=== PATIENT | female | born 1955 | race Caucasian/White ===

== ENCOUNTER 2016-10-12 18:11 | Observation (INO) | payer MEDICAID, OTHER ==
[2016-10-12] MEDS ORDERED: Lidocaine 2% Inj (20ml) INFIL ONE (18:51)
--- NOTE | 2016-10-12 18:55 | C.PDOC ---
History Of Present Illness 61 yr old female with PMHx of diabetes, presents to the ER for evaluation of a swelling to the right thumb. Patient reports a unknown sharp object struck her several days ago and since then the area has gotten swollen. Patient also reports of a mole to the right arm for the past several days. States when she scratches the area, it bleeds. Patient denies fever, chills, chest pain, SOB, nausea, vomiting, weakness or numbness. Time Seen by Provider: 10/12/16 18:34 Chief Complaint (Nursing): Abnormal Skin Integrity History Per: Patient History/Exam Limitations: no limitations Onset/Duration Of Symptoms: Days Past Medical History Reviewed: Historical Data, Nursing Documentation, Vital Signs Vital Signs: Last Vital Signs Temp 98.5 F 10/12/16 18:17 Pulse 73 10/12/16 18:17 Resp 18 10/12/16 18:17 BP 124/76 10/12/16 18:17 Pulse Ox 98 10/12/16 18:57 Family History: States: No Known Family Hx - Social History Hx Alcohol Use: No Hx Substance Use: No - Immunization History Hx Tetanus Toxoid Vaccination: No Hx Influenza Vaccination: No Hx Pneumococcal Vaccination: No Review Of Systems Except As Marked, All Systems Reviewed And Found Negative. Constitutional: Negative for: Fever, Chills Cardiovascular: Negative for: Chest Pain Respiratory: Negative for: Shortness of Breath Gastrointestinal: Negative for: Nausea, Vomiting Musculoskeletal: Positive for: Other ((+) Right thumb swelling.) Skin: Positive for: Other ((+) Mole to the right arm.) Neurological: Negative for: Weakness, Numbness Physical Exam - Physical Exam Appears: Non-toxic, No Acute Distress Skin: Warm, Dry, No Rash, Other (Right Arm - White color mole, approximately 1cm with irregular borders.) Head: Atraumatic, Normacephalic Oral Mucosa: Moist Chest: Symmetrical, No Tenderness Cardiovascular: Rhythm Regular, No Murmur Respiratory: Normal Breath Sounds, No Rales, No Rhonchi, No Stridor, No Wheezing Extremity: Normal ROM, Capillary Refill (<2), Other (Right Thumb - Swelling, fluctuance and tenderness to the medial nail margin with felon. ) Neurological/Psych: Oriented x3, Normal Speech, Normal Motor ED Course And Treatment - Laboratory Results Result Diagrams: 10/12/16 20:26 O2 Sat by Pulse Oximetry: 98 (RA) Pulse Ox Interpretation: Normal - Incision & Drainage Of Abscess Anesthesia: Lidocaine 2% Procedure: Incised W/Scalpel Blade#: (11), Drained Pus, Cultures Obtained And Sent To Lab Medical Decision Making Medical Decision Making: PLAN: * Tetanus IM given. * The case was discussed with Dr. Loco who agrees to consult on the patient states to admit medically for finger felon and cellulitis. * I&D per performed by me with small amount of pus drained and wound culture collected. * The case was discussed with Dr. Whittington (hospitalist oncall) who agrees to admit the patient medically. * Zosyn IV ordered. Disposition - Disposition Disposition: HOSPITALIZED Disposition Time: 20:15 Condition: FAIR - POA Present On Arrival: None - Clinical Impression Clinical Impression: Felon of finger, Cellulitis - PA / WORK ORDER CLERK / Resident Statement MD/DO has reviewed & agrees with the documentation as recorded. - Scribe Statement The provider has reviewed the documentation as recorded by the Scribe Kayla Lyle All medical record entries made by the Scribe were at my direction and personally dictated by me. I have reviewed the chart and agree that the record accurately reflects my personal performance of the history, physical exam, medical decision making, and the department course for this patient. I have also personally directed, reviewed, and agree with the discharge instructions and disposition.
[2016-10-12] MEDS ORDERED: Lidocaine 2% Inj (20ml) ONE (18:58)
[2016-10-12] MEDS ORDERED: Tetanus/Diphtheria Toxoids 0.5 ml Syringe IM ONE (19:40)
[2016-10-12] MEDS ORDERED: Piperacillin/Tazobact 3.375 gm 100 ML IV STA (20:23)
[2016-10-12] MEDS ORDERED: Piperacillin/Tazobact 3.375 gm 100 ML IVPB ONE ×2 (20:37→21:41)
[2016-10-12 21:01] LABS: CHLORIDE 100 mmol/L (98-107); POTASSIUM 4.7 mmol/L (3.6-5.2); SODIUM 137 mmol/L (132-148)
[2016-10-12 21:03] LABS: ALB/GLOB RATIO 1.2 (1.0-2.1); AST/SGOT 30 U/L (14-36); BILIRUBIN,TOTAL 0.8 mg/dL (0.2-1.3); BLOOD UREA NITROGEN 13 mg/dL (7-17); CARBON DIOXIDE 29 mmol/L (22-30); GFR AFRICAN-AMERICAN > 60; TOTAL PROTEIN 7.9 g/dL (6.3-8.3)
[2016-10-12 21:04] LABS: ALKALINE PHOSPHATASE 72 U/L (38-126); ALT/SGPT 30 U/L (9-52); CALCIUM 9.5 mg/dl (8.6-10.4); GLUCOSE,RANDOM 302 mg/dL (65-105)
--- NOTE | 2016-10-12 21:23 | CP.PCM.HP ---
<YungDonna Greta - Last Filed: 10/12/16 21:24> History of Present Illness - History of Present Illness History of Present Illness: CC: Finger hurts and is swollen HPI: Patient is a 61 y/o F with pmhx of uncontrolled diabetes who was looking for something in a drawer 4 days ago when the left side of her thumb was punctured by a earring. The thumb became more swollen and the pain increased to 10/10 which is why she came to the Emergency Room. She denies any fevers or chills. Patient also complains of symptoms caused by her sugars being high: blurry vision, dizziness, nausea/ vomiting (almost everyday), and diarrhea. She has lost about 30 lbs in the past year. She does not follow up with a primary care doctor because she has no insurance. She has been using Humalog 10 units once a day for about 6 months. If her sugars are in the 400s then she will take 10 more units. She checked her blood sugar a few times a day after meals and says it is always high. She did not know to check her sugars before meals. In the ED her finger was drained and the pus was sent for cultures. PMD: none, went to [facility] once in the past PMhx: DM II (diagnosed at 30) Psurg: none Famhx: Niece: ovarian cancer, nephew heart attack at 40, brother heart attack at 50 Social: smokes 1/2 pack of cigarettes per day since age 13 (24 pack years), denies alcohol, denies drugs Home Medications: Humalog 10u in the morning Present on Admission - Present on Admission Any Indicators Present on Admission: No History of DVT/PE: No History of Uncontrolled Diabetes: No Urinary Catheter: No Decubitus Ulcer Present: No Review of Systems - Constitutional Constitutional: Weight Loss. absent: Chills, Fever - EENT Eyes: Blurred Vision Ears: absent: Decreased Hearing Nose/Mouth/Throat: absent: Nasal Congestion, Sore Throat - Cardiovascular Cardiovascular: absent: Chest Pain, Claudication, Edema - Respiratory Respiratory: absent: Cough, Wheezing - Gastrointestinal Gastrointestinal: Diarrhea, Nausea, Vomiting - Genitourinary Genitourinary: absent: Change in Urinary Stream, Urinary Incontinence - Musculoskeletal Musculoskeletal: Tingling. absent: Joint Swelling, Muscle Weakness Additional comments: tingling in feet b/l - Neurological Neurological: Dizziness, Headaches. absent: Confusion - Psychiatric Psychiatric: absent: Confusion - Hematologic/Lymphatic Hematologic: absent: Easy Bleeding, Easy Bruising Past Patient History - Past Social History Smoking Status: Current Some Days Smoker - ENDOCRINE/METABOLIC Hx Diabetes Mellitus Type 2: Yes - PSYCHIATRIC Hx Substance Use: No Meds Allergies/Adverse Reactions: Allergies Allergy/AdvReac Type Severity Reaction Status Date / Time No Known Allergies Allergy Verified 10/12/16 18:27 Physical Exam - Constitutional Appears: Non-toxic, No Acute Distress - Head Exam Head Exam: ATRAUMATIC, NORMAL INSPECTION, NORMOCEPHALIC - Eye Exam Eye Exam: EOMI, PERRL Additional comments: pterygium in eyes b/l - ENT Exam ENT Exam: Mucous Membranes Moist - Neck Exam Neck exam: Positive for: Full Rom - Respiratory Exam Respiratory Exam: Clear to Auscultation Bilateral, NORMAL BREATHING PATTERN. absent: Rales, Rhonchi, Wheezes, Respiratory Distress, Stridor - Cardiovascular Exam Cardiovascular Exam: REGULAR RHYTHM, RRR. absent: Gallop, Rubs, Systolic Murmur - GI/Abdominal Exam GI & Abdominal Exam: Normal Bowel Sounds, Soft. absent: Tenderness - Extremities Exam Extremities exam: Positive for: normal inspection. Negative for: joint swelling , pedal edema - Neurological Exam Neurological exam: Alert, Oriented x3 - Psychiatric Exam Psychiatric exam: Normal Affect, Normal Mood - Skin Additional comments: right finger on left side and palmar aspect is edematous and erythematous Results - Vital Signs Recent Vital Signs: Last Vital Signs Temp 98.5 F 10/12/16 18:17 Pulse 73 10/12/16 18:17 Resp 18 10/12/16 18:17 BP 124/76 10/12/16 18:17 Pulse Ox 98 10/12/16 21:13 - Labs Result Diagrams: 10/12/16 20:26 Labs: Laboratory Results - last 24 hr 10/12/16 20:26 Sodium 137 Potassium 4.7 Chloride 100 Carbon Dioxide 29 Anion Gap 13 BUN 13 Creatinine 0.6 L Est GFR ( Amer) > 60 Est GFR (Non-Af Amer) > 60 Random Glucose 302 H Calcium 9.5 Total Bilirubin 0.8 AST 30 ALT 30 Alkaline Phosphatase 72 Total Protein 7.9 Albumin 4.3 Globulin 3.7 Albumin/Globulin Ratio 1.2 Assessment & Plan - Assessment and Plan (Free Text) Assessment: 1. Right Thumb Cellulitis Clindamycin 300 mg q6h Hand surgeon, Dr. Loco, consulted- help appreciated 2. Uncontrolled Diabetes Glucotrol XL 2.5mg daily Januvia 100 mg daily ISS accuchecks HgA1C 3. Prophylactic measures SCDs Pepcid 20 mg daily <Asad Whittington P - Last Filed: 10/20/16 19:34> Results - Vital Signs Recent Vital Signs: Last Vital Signs Temp 98 F 10/14/16 08:00 Pulse 56 L 10/14/16 08:00 Resp 20 10/14/16 08:00 BP 126/78 10/14/16 08:00 Pulse Ox 95 10/14/16 08:00 - Labs Result Diagrams: 10/14/16 09:13 10/14/16 09:13 Attending/Attestation - Attestation I have personally seen and examined this patient.: Yes I have fully participated in the care of the patient.: Yes I have reviewed all pertinent clinical information: Yes
[2016-10-12 21:47] LABS: BASO % 0.5 % (0.0-2.0); EOS # 0.3 K/uL (0.0-0.7); EOS % 3.2 % (0.0-4.0); HEMATOCRIT 42.7 % (34.0-47.0); LYMPH # 2.5 K/uL (1.0-4.3); LYMPH % 31.4 % (20.0-40.0); MEAN CELL VOLUME 78.5 fL (81.0-99.0); MEAN CORPUSCULAR HEMOGLOBIN 25.6 pg (27.0-31.0); MEAN CORPUSCULAR HGB CONC 32.6 g/dL (33.0-37.0); MEAN PLATELET VOLUME 8.3 fL (7.2-11.7); MONO # 0.4 K/uL (0.0-0.8); MONO % 4.4 % (0.0-10.0); RED CELL DISTRIBUTION WIDTH 13.4 % (11.5-14.5)
[2016-10-12] MEDS: Clindamycin 300 MG in Sodium Chloride 0.9% 50 ML IVPB SCH (22:32)
[2016-10-12] MEDS: (Novolin R) Insulin Human Regular 100 units/ml vial SC SCH (22:33)
[2016-10-13] MEDS: Clindamycin 300 MG in Sodium Chloride 0.9% 50 ML IVPB SCH ×4 (05:00→22:24)
[2016-10-13] MEDS: (Novolin R) Insulin Human Regular 100 units/ml vial SC SCH ×4 (07:30→22:07)
[2016-10-13 08:49] VITALS: RESP 20
[2016-10-13] MEDS: Enoxaparin 40 mg Syringe SC SCH ×2 (09:50→09:51)
[2016-10-13] MEDS ORDERED: GlipiZIDE 2.5 mg SR Tab PO SCH (10:00)
[2016-10-13] MEDS ORDERED: Bacitracin 500 Units/gm Oint Foilpak UD TOP ONE (12:36)
--- NOTE | 2016-10-13 16:29 | CP.PCM.PCO ---
Physician Communication Note - Physician Communication Note Physician Communication Note: Patient with paronychia status post I&D, improving , full note to follow
--- NOTE | 2016-10-13 17:04 | CP.PCM.PN ---
<Temi Jimenez DO - Last Filed: 10/13/16 16:59> Subjective - Date & Time of Evaluation Date of Evaluation: 10/13/16 Time of Evaluation: 10:20 - Subjective Subjective: Medicine progress note for Dr. Johnson Patient seen and examined. Patient states her thumb feels better after I&D but is framing machine tender to touch. Patient denies fevers and chills. Objective - Vital Signs/Intake and Output Vital Signs (last 24 hours): Temp Pulse Resp BP Pulse Ox 97.5 F L 60 20 107/69 95 10/13/16 08:00 10/13/16 08:00 10/13/16 08:00 10/13/16 08:00 10/13/16 08:00 Intake and Output: 10/13/16 10/13/16 06:59 18:59 Intake Total 350 530 Balance 350 530 - Medications Medications: Current Medications Enoxaparin Sodium (Lovenox) 40 mg SC DAILY [facility] Last Admin: 10/13/16 09:51 Dose: Not Given Famotidine (Pepcid) 20 mg PO DAILY [facility] Last Admin: 10/13/16 09:50 Dose: 20 mg Clindamycin Phosphate 300 mg/ (Sodium Chloride) 52 mls @ 100 mls/hr IVPB Q6H [facility] Last Admin: 10/13/16 09:49 Dose: 100 mls/hr Insulin Human Isoph/Insulin Regular (Novolin 70/30 (70/30 Units/Ml) 10 Ml) 15 units SC BID [facility] Insulin Human Regular (Novolin R) 0 unit SC ACHS [facility] PRN Reason: Protocol Last Admin: 10/13/16 12:12 Dose: 3 unit Pneumococcal Polyvalent Vaccine (Pneumovax 23 Vaccine) 0.5 ml IM .ONCE ONE Stop: 10/14/16 10:01 - Labs Labs: 10/12/16 21:39 10/12/16 20:26 - Constitutional Appears: Non-toxic, No Acute Distress - Head Exam Head Exam: ATRAUMATIC, NORMOCEPHALIC - Eye Exam Eye Exam: EOMI - ENT Exam ENT Exam: Mucous Membranes Moist - Respiratory Exam Respiratory Exam: Clear to Ausculation Bilateral, NORMAL BREATHING PATTERN - Cardiovascular Exam Cardiovascular Exam: +S1, +S2 - GI/Abdominal Exam GI & Abdominal Exam: Soft, Normal Bowel Sounds. absent: Tenderness - Extremities Exam Additional comments: right thumb with area of erythema and swelling adjacent to nail, tenderness on palpation without streaking up arm - Neurological Exam Neurological Exam: Alert, Awake - Psychiatric Exam Psychiatric exam: Normal Affect, Normal Mood - Skin Skin Exam: Dry, Warm Assessment and Plan - Assessment and Plan (Free Text) Assessment: 1. Right Thumb Cellulitis patient afebrile Clindamycin 300mg IV q6h Hand surgeon, Dr. Loco, consulted- help appreciated patient to do betadyne soaks TID patient can be D/C tomorrow if thumb improving with follow up if needed 2. Uncontrolled Diabetes novolin 70/30 15 units SC BID ISS accuchecks ACHS HgA1C pending 3. Prophylactic measures SCDs Pepcid 20 mg daily lovenox 40 sc daily <Santosh Johnson - Last Filed: 10/13/16 17:21> Objective - Vital Signs/Intake and Output Vital Signs (last 24 hours): Temp Pulse Resp BP Pulse Ox 97.5 F L 60 20 107/69 95 10/13/16 08:00 10/13/16 08:00 10/13/16 08:00 10/13/16 08:00 10/13/16 08:00 Intake and Output: 10/13/16 10/13/16 06:59 18:59 Intake Total 350 530 Balance 350 530 - Medications Medications: Current Medications Enoxaparin Sodium (Lovenox) 40 mg SC DAILY [facility] Last Admin: 10/13/16 09:51 Dose: Not Given Famotidine (Pepcid) 20 mg PO DAILY [facility] Last Admin: 10/13/16 09:50 Dose: 20 mg Clindamycin Phosphate 300 mg/ (Sodium Chloride) 52 mls @ 100 mls/hr IVPB Q6H [facility] Last Admin: 10/13/16 17:06 Dose: 100 mls/hr Insulin Human Isoph/Insulin Regular (Novolin 70/30 (70/30 Units/Ml) 10 Ml) 15 units SC BID [facility] Last Admin: 10/13/16 17:05 Dose: 15 units Insulin Human Regular (Novolin R) 0 unit SC ACHS [facility] PRN Reason: Protocol Last Admin: 10/13/16 17:05 Dose: 4 unit Pneumococcal Polyvalent Vaccine (Pneumovax 23 Vaccine) 0.5 ml IM .ONCE ONE Stop: 10/14/16 10:01 - Labs Labs: 10/12/16 21:39 10/12/16 20:26 Attending/Attestation - Attestation I have personally seen and examined this patient.: Yes I have fully participated in the care of the patient.: Yes I have reviewed all pertinent clinical information, including history, physical exam and plan: Yes Notes (Text): 10/13/16 17:20 Patient was seen and examined at bedside Continue IV antibiotics Start insulin for optimal sugar control Titrate as needed Follow-up recommendations of the hand surgery As The plan of care with the resident agree with the assessment and plan documented.
[2016-10-13] MEDS: (Novolin 70/30) NPH/Regular 70/30 Units/ml 10 ml vial SC SCH (17:05)
[2016-10-14] MEDS: Clindamycin 300 MG in Sodium Chloride 0.9% 50 ML IVPB SCH ×2 (04:05→10:14)
--- NOTE | 2016-10-14 07:46 | CP.PCM.PN ---
Subjective - Date & Time of Evaluation Date of Evaluation: 10/14/16 Time of Evaluation: 07:43 - Subjective Subjective: Plastics/Hand Surgery: Dr Loco Pt S&E. NAEO. Reports right thumb feels significantly better. Has been performing Iodine soaks TID. Denies f/c. Objective - Vital Signs/Intake and Output Vital Signs (last 24 hours): Temp Pulse Resp BP Pulse Ox 97.9 F 58 L 20 110/65 96 10/14/16 00:00 10/14/16 00:00 10/14/16 00:00 10/14/16 00:00 10/14/16 00:00 Intake and Output: 10/14/16 10/14/16 06:59 18:59 Intake Total 500 Balance 500 - Medications Medications: Current Medications Enoxaparin Sodium (Lovenox) 40 mg SC DAILY [facility] Last Admin: 10/13/16 09:51 Dose: Not Given Famotidine (Pepcid) 20 mg PO DAILY [facility] Last Admin: 10/13/16 09:50 Dose: 20 mg Clindamycin Phosphate 300 mg/ (Sodium Chloride) 52 mls @ 100 mls/hr IVPB Q6H [facility] Last Admin: 10/14/16 04:05 Dose: 100 mls/hr Insulin Human Isoph/Insulin Regular (Novolin 70/30 (70/30 Units/Ml) 10 Ml) 15 units SC BID [facility] Last Admin: 10/13/16 17:05 Dose: 15 units Insulin Human Regular (Novolin R) 0 unit SC ACHS [facility] PRN Reason: Protocol Last Admin: 10/13/16 22:07 Dose: Not Given Pneumococcal Polyvalent Vaccine (Pneumovax 23 Vaccine) 0.5 ml IM .ONCE ONE Stop: 10/14/16 10:01 - Labs Labs: 10/12/16 21:39 10/12/16 20:26 - Constitutional Appears: Non-toxic, No Acute Distress - Respiratory Exam Respiratory Exam: absent: Accessory Muscle Use, Respiratory Distress - Cardiovascular Exam Cardiovascular Exam: REGULAR RHYTHM - Extremities Exam Additional comments: right thumb s/p I&D. Minimal swelling, no erythema or continued drainage noted - Neurological Exam Neurological Exam: Alert, Awake, Oriented x3 - Psychiatric Exam Psychiatric exam: Normal Affect, Normal Mood - Skin Skin Exam: Normal Color, Warm Assessment and Plan - Assessment and Plan (Free Text) Assessment: 61F s/p I&D of felcl on right thumb Plan: Pt clear for d/c from surgical standpoint follow up with Dr Loco in 1 week continue Iodine soaks for 15 mins TID return if swelling or erythema worsens d/w Dr Claudy Omalley, PGY3
[2016-10-14 08:16] VITALS: BP 126/78; PULSE 56; TEMP 98; O2SAT 95
[2016-10-14] MEDS: (Novolin R) Insulin Human Regular 100 units/ml vial SC SCH (08:30)
[2016-10-14 09:19] LABS: BASO % 0.6 % (0.0-2.0); EOS # 0.3 K/uL (0.0-0.7); EOS % 3.2 % (0.0-4.0); HEMATOCRIT 42.4 % (34.0-47.0); LYMPH # 1.8 K/uL (1.0-4.3); LYMPH % 22.7 % (20.0-40.0); MEAN CELL VOLUME 78.1 fL (81.0-99.0); MEAN CORPUSCULAR HEMOGLOBIN 25.5 pg (27.0-31.0); MEAN CORPUSCULAR HGB CONC 32.7 g/dL (33.0-37.0); MEAN PLATELET VOLUME 8.3 fL (7.2-11.7); MONO # 0.4 K/uL (0.0-0.8); MONO % 5.2 % (0.0-10.0); NRBC % 0.1 % (0.0-2.0); RED CELL DISTRIBUTION WIDTH 13.3 % (11.5-14.5)
[2016-10-14 09:33] LABS: CHLORIDE 101 mmol/L (98-107)
[2016-10-14 09:34] LABS: POTASSIUM 4.5 mmol/L (3.6-5.2); SODIUM 137 mmol/L (132-148)
[2016-10-14 09:36] LABS: ALB/GLOB RATIO 1.1 (1.0-2.1); AST/SGOT 18 U/L (14-36); BILIRUBIN,TOTAL 0.9 mg/dL (0.2-1.3); BLOOD UREA NITROGEN 15 mg/dL (7-17); CARBON DIOXIDE 29 mmol/L (22-30); GFR AFRICAN-AMERICAN > 60; TOTAL PROTEIN 7.3 g/dL (6.3-8.3)
[2016-10-14 09:37] LABS: ALKALINE PHOSPHATASE 69 U/L (38-126); ALT/SGPT 29 U/L (9-52); CALCIUM 9.2 mg/dl (8.6-10.4); GLUCOSE,RANDOM 241 mg/dL (65-105)
[2016-10-14] MEDS: (Novolin 70/30) NPH/Regular 70/30 Units/ml 10 ml vial SC SCH (09:42)
[2016-10-14] MEDS ORDERED: (Novolin 70/30) NPH/Regular 70/30 Units/ml 10 ml vial SC SCH (09:46)
[2016-10-14] MEDS ORDERED: Pneumococcal 23-Valent Vaccine IM ONE (10:00)
[2016-10-14] MEDS: Enoxaparin 40 mg Syringe SC SCH (10:10)
--- NOTE | 2016-10-14 15:06 | CON ---
DATE: 10/13/2016 HISTORY OF PRESENT ILLNESS: The patient is a 61-year-old female who presented last night to the ER with paronychia and cellulitis on the right thumb. She had an I and D in the ER and was admitted for IV antibiotics. She notes that with just 2 doses of antibiotics the cellulitis has improved. She started soaking today. No further drainage today was noted. PAST MEDICAL HISTORY: She is otherwise healthy. PAST SURGICAL HISTORY: I and D of the right thumb. ALLERGIES: NO ALLERGIES TO MEDICATION. MEDICATIONS: See inpatient list. PHYSICAL EXAMINATION: Well-developed, well-nourished, female in no acute distress. The right thumb: There is some residual erythema to the volar aspect of the right thumb, but there is no streaking along the forearm. There is minimal tenderness. The volar pad is soft. There is no pain with mild pressure. There was no pus or discharge from the paronychia incision along the nail. No pus or purulence was noted. Culture: Culture was sent from the ER after the I and D and she has gram-positive cocci. No sensitivities yet. ASSESSMENT AND PLAN: A 61-year-old female with paronychia on the right thumb. I anticipate she should be ready for discharge as of tomorrow and discharge home with oral antibiotics. She should followup in the [facility] and can followup with me after discharge as well. She should continue to soak the thumb over the next week until the incisions completely closed. Natalie Loco MD
--- NOTE | 2016-10-14 15:44 | CP.PCM.DIS ---
<Temi Jimenez DO - Last Filed: 10/14/16 15:38> Provider - Provider Date of Admission: 10/12/16 20:14 Attending physician: Asad Whittington MD Consults: Dr. Loco Time Spent in preparation of Discharge (in minutes): 40 Diagnosis - Discharge Diagnosis (1) Cellulitis Status: Acute Comment: Patient treated with IV clindamycin and patient to be discharged with PO clindamycin for 5 more days. (2) Diabetes Status: Acute Comment: Patient's insulin regimen changed to humulin 70/30 20 units twice a day. Hospital Course - Lab Results Lab Results: Micro Results 10/12/16 Unknown Finger Gram Stain - Final 10/12/16 Unknown Finger Wound Culture - Preliminary Gram Negative Philip 10/13/16 08:49 Blood-Venous Blood Culture - Preliminary NO GROWTH AFTER 24 HOURS 10/13/16 08:49 Blood-Venous Blood Culture - Preliminary NO GROWTH AFTER 24 HOURS Most Recent Lab Values WBC 8.0 K/uL (4.8-10.8) 10/14/16 09:13 RBC 5.43 Mil/uL (3.80-5.20) H 10/14/16 09:13 Hgb 13.9 g/dL (11.0-16.0) 10/14/16 09:13 Hct 42.4 % (34.0-47.0) 10/14/16 09:13 MCV 78.1 fL (81.0-99.0) L 10/14/16 09:13 MCH 25.5 pg (27.0-31.0) L 10/14/16 09:13 MCHC 32.7 g/dL (33.0-37.0) L 10/14/16 09:13 RDW 13.3 % (11.5-14.5) 10/14/16 09:13 Plt Count 250 K/uL (130-400) 10/14/16 09:13 MPV 8.3 fL (7.2-11.7) 10/14/16 09:13 Neut % (Auto) 68.3 % (50.0-75.0) 10/14/16 09:13 Lymph % (Auto) 22.7 % (20.0-40.0) 10/14/16 09:13 [place] % (Auto) 5.2 % (0.0-10.0) 10/14/16 09:13 Eos % (Auto) 3.2 % (0.0-4.0) 10/14/16 09:13 Baso % (Auto) 0.6 % (0.0-2.0) 10/14/16 09:13 Neut # 5.5 K/uL (1.8-7.0) 10/14/16 09:13 Lymph # 1.8 K/uL (1.0-4.3) 10/14/16 09:13 [place] # 0.4 K/uL (0.0-0.8) 10/14/16 09:13 Eos # 0.3 K/uL (0.0-0.7) 10/14/16 09:13 Baso # 0.0 K/uL (0.0-0.2) 10/14/16 09:13 Sodium 137 mmol/L (132-148) 10/14/16 09:13 Potassium 4.5 mmol/L (3.6-5.2) 10/14/16 09:13 Chloride 101 mmol/L (98-107) 10/14/16 09:13 Carbon Dioxide 29 mmol/L (22-30) 10/14/16 09:13 Anion Gap 12 (10-20) 10/14/16 09:13 BUN 15 mg/dL (7-17) 10/14/16 09:13 Creatinine 0.7 MG/DL (0.7-1.2) 10/14/16 09:13 Est GFR ( Amer) > 60 10/14/16 09:13 Est GFR (Non-Af Amer) > 60 10/14/16 09:13 POC Glucose (mg/dL) 253 mg/dL (65-110) H 10/14/16 11:24 Random Glucose 241 mg/dL (65-105) H 10/14/16 09:13 Calcium 9.2 mg/dl (8.6-10.4) 10/14/16 09:13 Total Bilirubin 0.9 mg/dL (0.2-1.3) 10/14/16 09:13 AST 18 U/L (14-36) 10/14/16 09:13 ALT 29 U/L (9-52) 10/14/16 09:13 Alkaline Phosphatase 69 U/L (38-126) 10/14/16 09:13 Total Protein 7.3 g/dL (6.3-8.3) 10/14/16 09:13 Albumin 3.8 g/dL (3.5-5.0) 10/14/16 09:13 Globulin 3.4 gm/dL (2.2-3.9) 10/14/16 09:13 Albumin/Globulin Ratio 1.1 (1.0-2.1) 10/14/16 09:13 - Hospital Course Hospital Course: On admission: Patient is a 61 y/o F with pmhx of uncontrolled diabetes who was looking for something in a drawer 4 days ago when the left side of her thumb was punctured by a earring. The thumb became more swollen and the pain increased to 10/10 which is why she came to the Emergency Room. She denies any fevers or chills. Patient also complains of symptoms caused by her sugars being high: blurry vision, dizziness, nausea/ vomiting (almost everyday), and diarrhea. She has lost about 30 lbs in the past year. She does not follow up with a primary care doctor because she has no insurance. She has been using Humalog 10 units once a day for about 6 months. If her sugars are in the 400s then she will take 10 more units. She checked her blood sugar a few times a day after meals and says it is always high. She did not know to check her sugars before meals. In the ED her finger was drained and the pus was sent for cultures. During hospitalization: Patient had I&D in the ER with a small amount of pus drained and sent for culture. Patient was given one dose of zosyn in the ER and then given clindamycin IV 300mg for 7 total doses. Patient was evaluated by hand surgeon Dr. Loco who recommended betadyne soaks three times daily with follow up in one week. Patient's insulin regimen was changed to humulin 70/30, 20 units twice a day to provide better glucose control. Patient was instructed to make follow up appointment with the [facility] to establish care. On Discharge: Patient is stable for discharge per Dr. Johnson. Patient is to follow up with the [facility] to establish care. Patient is being given prescription for Humulin 70/30 kwikpen 20units twice a day for her diabetes. Patient is also being given prescriptions for clindamycin and a probiotic. Patient is to follow up with Dr. Loco in one week and do betadyne soaks three times a day at home. Patient is to return to the ED if her symptoms reoccur or worsen This is only a summary of patient's hospitalization for more detail please see complete record. Discharge Exam - Head Exam Head Exam: ATRAUMATIC, NORMOCEPHALIC - Eye Exam Eye Exam: EOMI - ENT Exam ENT Exam: Mucous Membranes Moist - Respiratory Exam Respiratory Exam: Clear to PA & Lateral, NORMAL BREATHING PATTERN - Cardiovascular Exam Cardiovascular Exam: +S1, +S2 - GI/Abdominal Exam GI & Abdominal Exam: Normal Bowel Sounds, Soft. absent: Tenderness - Extremities Exam Additional comments: right thumb with erythema adjacent to the nail. mild tenderness on palpation, improved from prior examination. swelling also improved. - Neurological Exam Neurological exam: Alert, Oriented x3 - Psychiatric Exam Psychiatric exam: Normal Affect - Skin Skin Exam: Dry, Warm Discharge Plan - Discharge Medications Prescriptions: Clindamycin [Cleocin] 300 mg PO Q8H #15 cap Insulin NPH Hum/Reg Insulin Hm [Humulin 70/30 Kwikpen 70 U/ml-30 U/ml 3 ml] 20 units SC BID #1 syr Saccharomyces Boulardi [Florastor] 250 mg PO DAILY #14 cap - Follow Up Plan Condition: FAIR Disposition: HOME/ ROUTINE Instructions: Clindamycin (By mouth), Insulin NPH/Regular (By injection), Pneumococcal Vaccine for Adults (DC), Cellulitis (DC), Cigarette Smoking and Your Health (GEN) Additional Instructions: Patient is stable for discharge per Dr. Johnson. Patient is to follow up with the [facility] to establish care. Patient is being given prescription for Humulin 70/30 kwikpen 20units twice a day for her diabetes. Patient is also being given prescriptions for clindamycin and a probiotic. Patient is to follow up with Dr. Loco in one week and do betadyne soaks three times a day at home. Patient is to return to the ED if her symptoms reoccur or worsen. Referrals: [facility] [Outside] - 1 Week Natalie Loco MD [Staff Provider] - 1 Week <Santosh Johnson - Last Filed: 10/14/16 16:06> Provider - Provider Date of Admission: 10/12/16 20:14 Attending physician: Asad Whittington MD Hospital Course - Lab Results Lab Results: Micro Results 10/12/16 Unknown Finger Gram Stain - Final 10/12/16 Unknown Finger Wound Culture - Preliminary Gram Negative Philip 10/13/16 08:49 Blood-Venous Blood Culture - Preliminary NO GROWTH AFTER 24 HOURS 10/13/16 08:49 Blood-Venous Blood Culture - Preliminary NO GROWTH AFTER 24 HOURS Most Recent Lab Values WBC 8.0 K/uL (4.8-10.8) 10/14/16 09:13 RBC 5.43 Mil/uL (3.80-5.20) H 10/14/16 09:13 Hgb 13.9 g/dL (11.0-16.0) 10/14/16 09:13 Hct 42.4 % (34.0-47.0) 10/14/16 09:13 MCV 78.1 fL (81.0-99.0) L 10/14/16 09:13 MCH 25.5 pg (27.0-31.0) L 10/14/16 09:13 MCHC 32.7 g/dL (33.0-37.0) L 10/14/16 09:13 RDW 13.3 % (11.5-14.5) 10/14/16 09:13 Plt Count 250 K/uL (130-400) 10/14/16 09:13 MPV 8.3 fL (7.2-11.7) 10/14/16 09:13 Neut % (Auto) 68.3 % (50.0-75.0) 10/14/16 09:13 Lymph % (Auto) 22.7 % (20.0-40.0) 10/14/16 09:13 [place] % (Auto) 5.2 % (0.0-10.0) 10/14/16 09:13 Eos % (Auto) 3.2 % (0.0-4.0) 10/14/16 09:13 Baso % (Auto) 0.6 % (0.0-2.0) 10/14/16 09:13 Neut # 5.5 K/uL (1.8-7.0) 10/14/16 09:13 Lymph # 1.8 K/uL (1.0-4.3) 10/14/16 09:13 [place] # 0.4 K/uL (0.0-0.8) 10/14/16 09:13 Eos # 0.3 K/uL (0.0-0.7) 10/14/16 09:13 Baso # 0.0 K/uL (0.0-0.2) 10/14/16 09:13 Sodium 137 mmol/L (132-148) 10/14/16 09:13 Potassium 4.5 mmol/L (3.6-5.2) 10/14/16 09:13 Chloride 101 mmol/L (98-107) 10/14/16 09:13 Carbon Dioxide 29 mmol/L (22-30) 10/14/16 09:13 Anion Gap 12 (10-20) 10/14/16 09:13 BUN 15 mg/dL (7-17) 10/14/16 09:13 Creatinine 0.7 MG/DL (0.7-1.2) 10/14/16 09:13 Est GFR ( Amer) > 60 10/14/16 09:13 Est GFR (Non-Af Amer) > 60 10/14/16 09:13 POC Glucose (mg/dL) 253 mg/dL (65-110) H 10/14/16 11:24 Random Glucose 241 mg/dL (65-105) H 10/14/16 09:13 Calcium 9.2 mg/dl (8.6-10.4) 10/14/16 09:13 Total Bilirubin 0.9 mg/dL (0.2-1.3) 10/14/16 09:13 AST 18 U/L (14-36) 10/14/16 09:13 ALT 29 U/L (9-52) 10/14/16 09:13 Alkaline Phosphatase 69 U/L (38-126) 10/14/16 09:13 Total Protein 7.3 g/dL (6.3-8.3) 10/14/16 09:13 Albumin 3.8 g/dL (3.5-5.0) 10/14/16 09:13 Globulin 3.4 gm/dL (2.2-3.9) 10/14/16 09:13 Albumin/Globulin Ratio 1.1 (1.0-2.1) 10/14/16 09:13 Attending/Attestation - Attestation I have personally seen and examined this patient.: Yes I have fully participated in the care of the patient.: Yes I have reviewed all pertinent clinical information, including history, physical exam and plan: Yes Notes (Text): 10/14/16 16:05 Patient was seen and examined at bedside Finger is healing well with no discharge Will discharge the patient on insulin and oral antibiotics Discussed with the residenet and i agree with the discharge note by the resident
[2016-10-15] MEDS ORDERED: Pneumococcal 23-Valent Vaccine IM ONE (10:00)
== END 2016-10-14 14:40 | disposition home or self-care (01) ==
LOC: C.ER 18:11 → C.9E 20:14 → INTOOBSV 20:14 → C.3T 22:22
PROVIDERS: ADMIT Internal Medicine; ATTEND Internal Medicine
DX: L03.011 Cellulitis of right finger (principal); B96.1 Klebsiella pneumoniae [K. pneumoniae] as the cause of diseases classified elsewhere; E11.65 Type 2 diabetes mellitus with hyperglycemia; Z79.84 Long term (current) use of oral hypoglycemic drugs; F17.210 Nicotine dependence, cigarettes, uncomplicated; Z23 Encounter for immunization
CPT/HCPCS: 10060; 36415; 80053; 82948; 83036; 85025; 87040; 87070; 87181; 90471; 90715; 96360; 99285; G0378; J2543